=== PATIENT | female | born 1965 | race Caucasian/White ===

== ENCOUNTER 2016-05-10 11:04 | Day surgery (SDC) | payer BC ==
--- NOTE | 2016-05-09 16:46 | HISTORY AND PHYSICAL ---
ADMITTED: 05/10/2016 HISTORY OF PRESENT ILLNESS: The patient is a 50-year-old female with chief complaint of a chronic, unstable left ankle. She states that she was seeing a provider in the [place] area since 08/2015. However, the ankle had continued to progress and become more painful. She describes pain and swelling out of proportion and was then first seen in our office in 01/2016. MEDICAL/SURGICAL HISTORY: Past medical history includes a history of thyroid problems and anemia. Currently takes a thyroid medication daily. Surgical history: She did not provide a past surgical history. PCP: Love Vazquez PA-C. MEDICATIONS: 1. Currently on no medicines. ALLERGIES: 1. REPORTS NO KNOWN DRUG OR FOOD ALLERGIES. SOCIAL HISTORY: She is employed full-time, does not smoke. Drinks socially. FAMILY HISTORY: noncontributory REVIEW OF SYSTEMS: Noncontributory to chief complaint. PHYSICAL EXAMINATION: GENERAL: The patient is alert and oriented x3. HEAD AND NECK: PERRLA. Normocephalic. HEART: Regular rate and rhythm. Regular S1, S2. No murmurs or gallops. LUNGS: Respirations clear to auscultation. No wheezing, rhonchi, or rales. ABDOMEN: Soft, tender, nondistended. No palpable masses. Normal tones. LOWER EXTREMITY: Vascular: DP and PT pulses are palpable at +2/4. Skin texture and turgor within normal limits. Orthopedically, there is a positive anterior drawer sign with 4 mm of anterior displacement. Some noted tenderness on the anterior distal portion of the fibula. LAB/IMAGING: Imaging: Ortho scan, weightbearing platform, revealed diastasis of the lateral gutter, and the mortise is intact. There is noted a transverse fracture of the distal fibula. MRI at [facility] on 02/07/2016 revealed a torn anterior talar and calcaneal fibular ligament, as well as a transverse fibular fracture. IMPRESSION: 1. Chronic ankle instability with torn lateral collateral ligaments 2. Healing fracture of the distal fibula PLAN: The patient is scheduled for an outpatient procedure consisting of a lateral ankle stabilization, arthroscopy with debridement. She is well aware of the planned procedure. There are no contraindications to surgery at this time. Surgery is scheduled on an outpatient basis at [facility], 05/10/2016.
[~2016-05-10 11:04] MED LIST: ZOMIG5 M1 PO
[2016-05-10] MEDS ORDERED: EXCEDRIN EXTRA1 TAB (11:28)
[2016-05-10] MEDS ORDERED: ZOFRAN4 MG PO (16:00)
[2016-05-10] MEDS ORDERED: PERCOCET1 TA4 PO (16:00)
--- NOTE | 2016-05-10 16:02 | Provider's Discharge Care Plan ---
Problem, Goal, Plan Problem List 1. Sprain of other ligament of left ankle, sequela Goals: Improve function Instructions: Follow up as directed
--- NOTE | 2016-05-10 16:02 | Provider's Discharge Care Plan ---
Problem, Goal, Plan Problem List 1. Sprain of other ligament of left ankle, sequela Goals: Improve function Instructions: Follow up as directed
[2016-05-10 17:00] VITALS: BP 110/65
[2016-05-10 17:15] VITALS: BP 111/60
[2016-05-10 17:36] VITALS: BP 111/60
[2016-05-10 17:49] VITALS: BP 120/67
[2016-05-10 18:15] VITALS: BP 113/69
[2016-05-10 18:45] VITALS: BP 118/68
--- NOTE | 2016-05-10 22:39 | OPERATIVE REPORT ---
DATE OF SURGERY: 05/10/2016 SURGEON: Miguel Angel Jeffers DPM PREOPERATIVE DIAGNOSES: 1. Ankle instability 2. Torn anterior talofibular ligament POSTOPERATIVE DIAGNOSES: 1. Chronic ankle instability 2. Torn anterior talofibular ligament 3. Hemorrhagic synovitis PROCEDURES PERFORMED: 1. Ankle arthroscopy with debridement 2. Lateral ankle stabilization ANESTHESIA: General. HEMOSTASIS: Achieved by pneumatic thigh tourniquet inflated to 275 mmHg pressure. TOURNIQUET TIME: Total tourniquet time 71 minutes. MATERIALS: 3-0 and 4-0 Polysorb, 4-0 Surgipro and one Arthrex internal brace kit with #2 FiberWire. INJECTABLES: Injected 20 mL of 0.5% bupivacaine with epinephrine 1:200,000. COMPLICATIONS: None. CONDITION: The patient tolerated anesthesia, procedure well. INDICATIONS: The patient is a 50-year-old female who has had a chronically unstable ankle for several years, as well as a slow healing transverse distal fibular fracture. She has had multiple sprains. MRI dated on 02/07/2016 at [facility] revealed torn anterior talofibular ligament and calcaneofibular ligament respectively. The fracture was also noted as healed. She is well aware of the planned procedure. There are no contraindications to surgery at this time. SURGICAL TECHNIQUE: The patient was brought to the operating room, placed on operating table in a supine position. General anesthetic was administered. A pneumatic tourniquet was then placed above the left knee, left lower extremity was prepped and draped in normal sterile fashion. An intraoperative pause was carried out with positive identification, proper limb, consent form verified and confirmed. At this time, an Esmarch bandage was then utilized to exsanguinate the limb, tourniquet was then inflated. Attention was then directed to procedure #1. Ankle arthroscopy with debridement: With the leg sterilely placed in a leg morris, an ankle distractor was then placed and then the ankle joint was then distracted. An 18-gauge needle was then used on the anterolateral gutter and 11-blade was utilized to create a lateral portal, it was deepened by a portal dissection. Blunt trocar was introduced and the arthroscope was then placed. Upon entry, there was a noted significant hemorrhagic synovitis on the anterolateral aspect of the gutter and then extending posteriorly to reveal remnants of the anterior talofibular ligament. Additionally, the joint was further distracted with access to the posteromedial and anteromedial aspect. A corresponding portal incision was made on the anterior aspect of the medial gutter just medial to the tibialis anterior tendon. The blunt trocar was visualized in the joint. A small joint shaver was then placed into the joint and the hemorrhagic synovium was resected in toto. Any remnants of the intracapsular portion of the anterior talofibular ligament were resected as well. There were no osteochondral lesions visualized. The scope and camera were then removed. The portals were then reapproximated with 4-0 Surgipro. Attention was directed to procedure #2. Lateral ankle stabilization: At this time, a linear incision was made just on the anterior distal fibula extending across from the distal portion extending and slightly anteriorly. It was deepened by sharp and blunt dissection. A [place] elevator was then utilized to incise the periosteum on the anterior distal fibula and reflected. The remnants of the anterior talofibular ligament were seen in the gutter, as well as and extending in towards the joint and they were additionally resected with a small rongeur. The calcaneofibular ligament was seen as were remnants of the calcaneofibular ligaments were seen as it entered into the very most distal aspect of the lateral gutter and they were removed with the rongeur as well. The guidewire was then driven obliquely in the anterior distal fibula and oriented towards the lateral gutter and towards the mortise, visualized under fluoroscopy for proper placement. It was drilled with a 2.7 drill, tapped accordingly, and then the FiberWire was placed with a SwiveLock. Dissection was carried across just slightly anterior and medially following the course of the remnants of the anterior talofibular ligament, the foot held in a neutral position, a guidewire was then driven obliquely inferior to the trochlear surface and oriented at 45 degrees towards the posteromedial malleolus. Verified under fluoroscopy for proper placement, drilled with a 2.7 drill then over-drilled with a 3.4 and then tapped accordingly, with the foot held in a neutral position, the FiberWire was loaded into an additional SwiveLock and then inserted. The area was flushed. A [place] elevator was then placed under the tape while moving the foot through range of motion, both dorsiflexion, plantar flexion, inversion, and eversion with tension in place through all planes. The area was additionally flushed. The remaining capsule and periosteum, retinaculum were reapproximated in [id number] fashion. Periosteum with 3-0 Polysorb as well on the distal fibula. Subcutaneous reapproximated with 4-0 Polysorb and skin edges were reapproximated in running fashion with 4-0 Surgipro. The area was locally anesthetized with aforementioned local anesthetic. Tourniquet was released with a light compressive dressing applied with normal reactive hyperemia and good digital perfusion noted. The patient tolerated procedures well without complications, left the operating room with vital signs stable. While in recovery, written explicit instructions weightbearing to tolerance with a fracture boot. Prognosis is guarded. She will be discharged home in stable condition. Follow back with me in 3-5 days.
== END 2016-05-10 20:00 | disposition home or self-care (01) ==
LOC: OR SRH 11:04 → SCU SRH 11:06 → OR SRH 14:30 → ACUTE2 SRH 17:04 → OR SRH 20:00
PROVIDERS: Podiatrist
PROC: 0MQR0ZZ Repair Left Ankle Bursa and Ligament, Open Approach (ICD-10-PCS; principal; 2016-05-10 14:30)
PROC: 0SBG4ZZ Excision of Left Ankle Joint, Percutaneous Endoscopic Approach (ICD-10-PCS; principal; 2016-05-10 14:30)
DX: M25.372 Other instability, left ankle (principal); S93.492A Sprain of other ligament of left ankle, initial encounter; M65.872 Other synovitis and tenosynovitis, left ankle and foot
CPT/HCPCS: 50002; 60001; 70002; 80144; 80360; 80575; 83419; 83612; 83860; 84038; 84522; 90074; 90100; 95059